=== PATIENT | female | born 1995 | race American Indian/Alaskan Native ===

== ENCOUNTER 2017-10-02 08:09 | Emergency (ER) | payer OTHER ==
[~2017-10-02] VITALS: Ht 160 cm; Wt 59.0 kg
[2017-10-02] MEDS ORDERED: KETOROLAC TROME10 MG PO (09:19)
[2017-10-02] MEDS ORDERED: BACLOFEN10 MG PO (09:19)
[2017-10-02] MEDS ORDERED: ALEVE220 MG PO (09:41)
== END 2017-10-02 09:35 | disposition home or self-care (01) ==
LOC: ED 08:09
DX: S16.1XXA Strain of muscle, fascia and tendon at neck level, initial encounter (principal); V49.9XXA Car occupant (driver) (passenger) injured in unspecified traffic accident, initial encounter
CPT/HCPCS: 70450; 72125; 72128; 80053; 84703; 85025; 85610; 85730; 96374; 96375; 99284; G0480; J1170; J2060; J2405